=== PATIENT | female | born 1960 | race African-American/Black ===

== ENCOUNTER 2021-06-20 11:29 | Emergency (ER) | payer OTHER ==
[2021-06-20 11:51] VITALS: BMI 34.5
[2021-06-20] MEDS ORDERED: diazePAM CARPU-JECT 10 MG/2 ML DISP.SYRIN IVPUSH ONE (11:52)
[2021-06-20] MEDS ORDERED: diazePAM CARPU-JECT 10 MG/2 ML DISP.SYRIN ONE (12:17)
[2021-06-20 12:42] LABS: INR 1.02 (0.83-1.09); PROTHROMBIN TIME (PATIENT) 11.7 SEC (9.7-13.0)
[2021-06-20 12:43] LABS: ACTIVATED PTT 25.5 SECONDS (25.2-36.5)
[2021-06-20 12:46] LABS: HEMATOCRIT 35.5 % (32.4-45.2); HEMOGLOBIN 11.5 GM/dL (10.7-15.3); MCHC 32.5 g/dl (32.0-36.0); MEAN CELL VOLUME 76.9 fl (80-96); MEAN PLT VOLUME 7.5 fl (7.5-11.1); PLATELET COUNT 199 10^3/uL (134-434); RBC 4.62 M/mm3 (3.60-5.2); RDW 15.7 % (11.6-15.6); WHITE BLOOD COUNT 7.2 K/mm3 (4.0-10.0)
[2021-06-20 12:56] LABS: CHLORIDE 100 mmol/L (98-107); SODIUM 133 mmol/L (136-145)
[2021-06-20 12:58] LABS: CALCIUM 8.3 mg/dL (8.5-10.1); LIPASE < 10 U/L (73-393); MAGNESIUM 2.2 mg/dL (1.8-2.4)
[2021-06-20 12:59] LABS: BLOOD UREA NITROGEN 7.6 mg/dL (7-18); CO2 24 mmol/L (21-32); GLUCOSE,RANDOM 159 mg/dL (74-106)
[2021-06-20 13:01] LABS: PHOSPHOROUS 4.3 mg/dL (2.5-4.9); SGPT/ALT 57 U/L (13-61)
[2021-06-20 13:02] LABS: CREATININE 0.9 mg/dL (0.55-1.3); SGOT/AST 137 U/L (15-37)
[2021-06-20 13:03] LABS: BILIRUBIN,TOTAL 0.6 mg/dL (0.2-1); TOT PROT 7.5 g/dl (6.4-8.2)
[2021-06-20 13:05] LABS: ALK PHOS 174 U/L (45-117)
[2021-06-20 13:18] LABS: ANION GAP 8 MMOL/L (8-16)
[2021-06-20 13:36] LABS: ANISOCYTOSIS 1+; MACROCYTOSIS 1+; OVALOCYTE 1+; PLATELET ESTIMATE NORMAL; TARGET CELLS 1+; TEAR DROP CELLS 1+
[2021-06-20 14:36] LABS: CALCIUM 8.1 mg/dL (8.5-10.1)
[2021-06-20 14:37] LABS: BLOOD UREA NITROGEN 7.4 mg/dL (7-18)
[2021-06-20 14:40] LABS: CREATININE 0.6 mg/dL (0.55-1.3)
[2021-06-20 15:03] VITALS: BP 130/78; PULSE 89; TEMP 98.9
== END 2021-06-20 15:00 | disposition short-term general hospital (02) ==
LOC: JER 11:29
PROC: 3E033GC Introduction of Other Therapeutic Substance into Peripheral Vein, Percutaneous Approach (ICD-10-PCS; principal; 2021-06-20)
DX: F10.239 Alcohol dependence with withdrawal, unspecified (principal)
CPT/HCPCS: 36415; 71046-TC-FY; 80048; 80053; 83690; 83735; 84100; 84443; 84484; 85025; 85610; 85730; 93005; 93010; 96374; 99285-25; C9803; U0003; U0005

== ENCOUNTER 2021-06-20 16:18 | Inpatient (IN) | payer OTHER ==
[2021-06-20 17:00] VITALS: BMI 39.4
[2021-06-20] MEDS ORDERED: MENTHOL/PHENOL 1 EACH UD MM PRN (18:00)
[2021-06-20] MEDS ORDERED: MAGNESIUM HYDROX 2400MG/30ML ORAL SUSPENSION 30 ML CUP PO PRN (18:00)
[2021-06-20] MEDS ORDERED: IBUPROFEN 400 MG TABLET (FP) PO PRN (18:00)
[2021-06-20] MEDS ORDERED: BISMUTH SUBSALICYLATE 524 MG/30 ML PO PRN (18:00)
[2021-06-20] MEDS ORDERED: ACETAMINOPHEN 325 MG TABLET (FP) PO PRN ×2 (18:00)
[2021-06-20] MEDS ORDERED: ONDANSETRON *ODT* 4 MG TABLET SL PRN (18:00)
[2021-06-20] MEDS ORDERED: MAGNESIUM CITRATE 300 ML BOTTLE PO PRN (18:00)
[2021-06-20] MEDS ORDERED: MAG HYDROX/AL HYDROX/SIMETH 30 ML UNIT-DOSE CUP PO PRN (18:00)
[2021-06-20] MEDS ORDERED: METOPROLOL TARTRATE 25 MG TABLET (FP) PO ONE (18:06)
[2021-06-20] MEDS ORDERED: diazePAM 5 MG TABLET PO PRN (20:24)
[2021-06-20] MEDS ORDERED: cloNIDine HCL 0.1 MG TABLET PO ONE (22:32)
[2021-06-20] MEDS ORDERED: ASPIRIN 81 MG CHEWABLE TABLETS PO ONE (22:34)
[2021-06-20] MEDS ORDERED: cloNIDine HCL 0.1 MG TABLET ONE (22:36)
[2021-06-20] MEDS ORDERED: ASPIRIN 81 MG CHEWABLE TABLETS ONE (22:36)
[2021-06-20] MEDS: THIAMINE HCL 100 MG TABLET (FP) PO SCH (23:34)
[2021-06-20] MEDS: MELATONIN 5 MG TABLETS PO PRN (23:35)
[2021-06-20] MEDS: PRENATAL VITAMINS W/ FOLIC ACID TABLET (FP) PO SCH (23:36)
[2021-06-21 10:40] LABS: HEMATOCRIT 28.1 % (32.4-45.2); HEMOGLOBIN 9.2 GM/dL (10.7-15.3); MCH 25.5 pg (25.7-33.7); MCHC 32.7 g/dl (32.0-36.0); MEAN CELL VOLUME 77.9 fl (80-96); MEAN PLT VOLUME 7.2 fl (7.5-11.1); PLATELET COUNT 155 10^3/uL (134-434); RBC 3.61 M/mm3 (3.60-5.2); RDW 15.5 % (11.6-15.6); WHITE BLOOD COUNT 5.8 K/mm3 (4.0-10.0)
[2021-06-21 10:41] LABS: ALBUMIN 2.6 g/dl (3.4-5.0); BLOOD UREA NITROGEN 8.1 mg/dL (7-18); CALCIUM 8.1 mg/dL (8.5-10.1)
[2021-06-21] MEDS: methaDONE HCL 40 MG DISPERSABLE TABLET PO SCH (10:41)
[2021-06-21] MEDS: PRENATAL VITAMINS W/ FOLIC ACID TABLET (FP) PO SCH (10:41)
[2021-06-21 10:44] LABS: CREATININE 0.8 mg/dL (0.55-1.3)
[2021-06-21 10:46] LABS: TOT PROT 5.9 g/dl (6.4-8.2)
[2021-06-21] MEDS: metoPROLOL SUCCINATE 25 MG TAB.SR.24H (FP) PO SCH (16:23)
[2021-06-21] MEDS: ASPIRIN 325 MG ENTERIC COATED TABLET (FP) PO SCH (16:23)
[2021-06-21] MEDS: THIAMINE HCL 100 MG TABLET (FP) PO SCH (22:13)
[2021-06-21] MEDS: MELATONIN 5 MG TABLETS PO PRN (22:13)
[2021-06-22] MEDS: methaDONE HCL 40 MG DISPERSABLE TABLET PO SCH (06:31)
[2021-06-22] MEDS: metoPROLOL SUCCINATE 25 MG TAB.SR.24H (FP) PO SCH (10:58)
[2021-06-22] MEDS: ASPIRIN 325 MG ENTERIC COATED TABLET (FP) PO SCH (10:58)
[2021-06-22] MEDS: PRENATAL VITAMINS W/ FOLIC ACID TABLET (FP) PO SCH (10:58)
[2021-06-22 13:55] LABS: HEMATOCRIT 32.9 % (32.4-45.2); HEMOGLOBIN 10.2 GM/dL (10.7-15.3); MCH 24.6 pg (25.7-33.7); MCHC 30.8 g/dl (32.0-36.0); MEAN CELL VOLUME 79.9 fl (80-96); MEAN PLT VOLUME 7.8 fl (7.5-11.1); PLATELET COUNT 175 10^3/uL (134-434); RBC 4.12 M/mm3 (3.60-5.2); RDW 15.6 % (11.6-15.6); WHITE BLOOD COUNT 5.5 K/mm3 (4.0-10.0)
[2021-06-22] MEDS: MELATONIN 5 MG TABLETS PO PRN (22:20)
[2021-06-22] MEDS: THIAMINE HCL 100 MG TABLET (FP) PO SCH (22:20)
[2021-06-23] MEDS: methaDONE HCL 40 MG DISPERSABLE TABLET PO SCH (06:37)
[2021-06-23 09:03] VITALS: BP 109/68; PULSE 73; TEMP 97.2
[2021-06-23] MEDS: PRENATAL VITAMINS W/ FOLIC ACID TABLET (FP) PO SCH (10:22)
[2021-06-23] MEDS: metoPROLOL SUCCINATE 25 MG TAB.SR.24H (FP) PO SCH (10:22)
[2021-06-23] MEDS: ASPIRIN 325 MG ENTERIC COATED TABLET (FP) PO SCH (10:22)
== END 2021-06-23 11:45 | disposition home or self-care (01) | DRG 897 ==
LOC: YASAS 16:18 → Y3N 22:16
PROVIDERS: ADMIT Allergy & Immunology; ATTEND Allergy & Immunology
PROC: HZ2ZZZZ Detoxification Services for Substance Abuse Treatment (ICD-10-PCS; principal; 2021-06-20)
DX: F10.230 Alcohol dependence with withdrawal, uncomplicated (principal); F11.20 Opioid dependence, uncomplicated; I10 Essential (primary) hypertension; E78.5 Hyperlipidemia, unspecified; Z86.73 Personal history of transient ischemic attack (TIA), and cerebral infarction without residual deficits; Z87.891 Personal history of nicotine dependence; Z89.412 Acquired absence of left great toe; Z86.19 Personal history of other infectious and parasitic diseases; Z88.8 Allergy status to other drugs, medicaments and biological substances
CPT/HCPCS: 36415; 71046-TC-FY; 80048; 80053; 82962; 83690; 83735; 84100; 84443; 84484; 85025; 85027; 85610; 85730; 86593; 86780; 93005; 93010; 96374; 99285-25; C9803; J0735; U0003; U0005

== ENCOUNTER 2022-07-09 08:17 | Inpatient (IN) | payer OTHER ==
[2022-07-09 08:40] VITALS: BMI 38.4
[2022-07-09] MEDS ORDERED: LORazepam 1 MG TABLET PO PRN (09:03)
[2022-07-09] MEDS ORDERED: MAG HYDROX/AL HYDROX/SIMETH 30 ML UNIT-DOSE CUP PO PRN (09:03)
[2022-07-09] MEDS ORDERED: BENZOCAINE/MENTHOL (CHLORASEPTIC ) LOZENGE MM PRN (09:03)
[2022-07-09] MEDS ORDERED: NALOXONE HCL (KLOXXADO) 8 MG SPRAY NS PRN (09:03)
[2022-07-09] MEDS ORDERED: DICYCLOMINE HCL 10 MG CAPSULE PO PRN (09:03)
[2022-07-09] MEDS ORDERED: METHOCARBAMOL 500 MG TABLET PO PRN (09:03)
[2022-07-09] MEDS ORDERED: LOPERAMIDE HCL 2 MG CAPSULE PO PRN (09:03)
[2022-07-09] MEDS ORDERED: IBUPROFEN 600 MG TABLET (FP) PO PRN (09:03)
[2022-07-09] MEDS ORDERED: ONDANSETRON *ODT* 4 MG TABLET SL PRN (09:03)
[2022-07-09] MEDS ORDERED: MAGNESIUM HYDROX 2400MG/30ML ORAL SUSPENSION 30 ML CUP PO PRN (09:03)
[2022-07-09] MEDS ORDERED: IBUPROFEN 400 MG TABLET (FP) PO PRN (09:03)
[2022-07-09] MEDS ORDERED: BISMUTH SUBSALICYLATE 524 MG/30 ML PO PRN (09:03)
[2022-07-09] MEDS ORDERED: POLYETHYLENE GLYCOL (HEALTHYLAX) 3350 17 GM PACKET PO PRN (09:03)
[2022-07-09] MEDS ORDERED: hydrOXYzine PAMOATE 25 MG CAPSULE (FP) PO PRN (09:03)
[2022-07-09] MEDS ORDERED: ACETAMINOPHEN 325 MG TABLET (FP) PO PRN ×2 (09:03)
[2022-07-09] MEDS: PRENATAL VITAMINS W/ FOLIC ACID TABLET (FP) PO SCH (10:31)
[2022-07-09] MEDS ORDERED: LORazepam 1 MG TABLET ONE (10:34)
[2022-07-09] MEDS ORDERED: PRENATAL VITAMINS W/ FOLIC ACID TABLET (FP) PO ONE (10:35)
[2022-07-09] MEDS ORDERED: LORazepam 2 MG TABLET PO SCH (11:00)
[2022-07-09] MEDS: LORazepam 1 MG TABLET PO SCH ×2 (17:29→22:47)
[2022-07-09] MEDS: MELATONIN 5 MG TABLETS PO SCH (22:47)
[2022-07-09] MEDS: THIAMINE HCL 100 MG TABLET (FP) PO SCH (22:47)
[2022-07-10] MEDS: LORazepam 1 MG TABLET PO SCH ×4 (05:49→22:15)
[2022-07-10] MEDS: PRENATAL VITAMINS W/ FOLIC ACID TABLET (FP) PO SCH (10:22)
[2022-07-10] MEDS ORDERED: methaDONE HCL 10 MG TABLET PO SCH (10:30)
[2022-07-10] MEDS: ROSUVASTATIN CA 10 MG TABLET PO SCH (11:11)
[2022-07-10 13:39] LABS: HEMATOCRIT 33.3 % (32.4-45.2); HEMOGLOBIN 10.3 GM/dL (10.7-15.3); MCH 24.8 pg (25.7-33.7); MEAN CELL VOLUME 80.2 fl (80-96); PLATELET COUNT 325 10^3/uL (134-434); RBC 4.16 M/mm3 (3.60-5.2); RDW 16.7 % (11.6-15.6); WHITE BLOOD COUNT 6.8 K/mm3 (4.0-10.0)
[2022-07-10 14:32] LABS: ALBUMIN 2.9 g/dl (3.4-5.0); BLOOD UREA NITROGEN 14.1 mg/dL (7-18); CALCIUM 7.9 mg/dL (8.5-10.1)
[2022-07-10 14:36] LABS: CREATININE 0.9 mg/dL (0.55-1.3)
[2022-07-10 14:37] LABS: BILIRUBIN,TOTAL 0.8 mg/dL (0.2-1); TOT PROT 6.5 g/dl (6.4-8.2)
[2022-07-10] MEDS: THIAMINE HCL 100 MG TABLET (FP) PO SCH (22:15)
[2022-07-10] MEDS: MELATONIN 5 MG TABLETS PO SCH (22:15)
[2022-07-11] MEDS: LORazepam 1 MG TABLET PO SCH ×4 (06:00→22:53)
[2022-07-11] MEDS: ROSUVASTATIN CA 10 MG TABLET PO SCH (10:16)
[2022-07-11] MEDS: PRENATAL VITAMINS W/ FOLIC ACID TABLET (FP) PO SCH (10:16)
[2022-07-11] MEDS: LACTULOSE 20 GM/30 ML UDC (FOR ORAL USE ONLY) PO SCH ×2 (14:41→22:53)
[2022-07-11] MEDS: THIAMINE HCL 100 MG TABLET (FP) PO SCH (22:53)
[2022-07-11] MEDS: MELATONIN 5 MG TABLETS PO SCH (22:53)
[2022-07-12] MEDS ORDERED: LORazepam 0.5 MG TABLET PO PRN
[2022-07-12] MEDS: LORazepam 0.5 MG TABLET PO SCH ×4 (05:16→22:21)
[2022-07-12] MEDS: LACTULOSE 20 GM/30 ML UDC (FOR ORAL USE ONLY) PO SCH ×3 (06:14→22:21)
[2022-07-12] MEDS: ROSUVASTATIN CA 10 MG TABLET PO SCH (10:29)
[2022-07-12] MEDS: PRENATAL VITAMINS W/ FOLIC ACID TABLET (FP) PO SCH (10:29)
[2022-07-12] MEDS: MELATONIN 5 MG TABLETS PO SCH (22:21)
[2022-07-12] MEDS: THIAMINE HCL 100 MG TABLET (FP) PO SCH (22:21)
[2022-07-13] MEDS ORDERED: LORazepam 0.5 MG TABLET PO ONE (05:00)
[2022-07-13] MEDS: LACTULOSE 20 GM/30 ML UDC (FOR ORAL USE ONLY) PO SCH ×2 (05:53→13:22)
[2022-07-13 09:11] VITALS: RESP 20
[2022-07-13] MEDS: PRENATAL VITAMINS W/ FOLIC ACID TABLET (FP) PO SCH (10:08)
[2022-07-13] MEDS: ROSUVASTATIN CA 10 MG TABLET PO SCH (10:08)
[2022-07-13 13:30] VITALS: BP 130/74; PULSE 100; TEMP 98.2
== END 2022-07-13 15:15 | disposition home or self-care (01) | DRG 897 ==
LOC: YASAS 08:17 → Y3N 09:59
PROVIDERS: ADMIT Allergy & Immunology; ATTEND Surgery
PROC: HZ2ZZZZ Detoxification Services for Substance Abuse Treatment (ICD-10-PCS; principal; 2022-07-09)
DX: F10.230 Alcohol dependence with withdrawal, uncomplicated (principal); F11.20 Opioid dependence, uncomplicated; E72.20 Disorder of urea cycle metabolism, unspecified; I69.854 Hemiplegia and hemiparesis following other cerebrovascular disease affecting left non-dominant side; E78.5 Hyperlipidemia, unspecified; I10 Essential (primary) hypertension; R73.03 Prediabetes; Z99.89 Dependence on other enabling machines and devices; Z86.19 Personal history of other infectious and parasitic diseases; Z88.8 Allergy status to other drugs, medicaments and biological substances
CPT/HCPCS: 36415; 80053; 82140; 82962; 85027; 86593; 86780; 87811; 93005; 93010; C9803-CS; Q0162; U0003; U0005